=== PATIENT | female | born 1955 | race Caucasian/White ===

== ENCOUNTER → 2016-06-03 | Outpatient (CLI) | payer BC | LOC: MC.RAD 07:40 | DX: Z12.31 Encounter for screening mammogram for malignant neoplasm of breast (principal) ==

== ENCOUNTER 2016-06-04 08:00 | Outpatient (RCR) | payer BC | END 2016-06-04 15:05 | disposition home or self-care (01) | LOC: MKS.ESL.PT 08:00 | DX: H81.12 Benign paroxysmal vertigo, left ear (principal) ==

== ENCOUNTER → 2017-07-18 | Outpatient (CLI) | payer BC | LOC: COL.RAD 10:21 | DX: D25.9 Leiomyoma of uterus, unspecified (principal) ==

== ENCOUNTER → 2017-11-01 | Outpatient (CLI) | payer BC | LOC: MC.RAD 08-30 08:40 | DX: Z12.31 Encounter for screening mammogram for malignant neoplasm of breast (principal) ==

== ENCOUNTER 2017-11-14 10:30 | Outpatient (RCR) | payer BC | END 2017-11-20 | disposition home or self-care (01) | LOC: MKS.ESL.PT | DX: M25.512 Pain in left shoulder (principal) ==

== ENCOUNTER 2017-12-05 12:50 | Outpatient (RCR) | payer BC | END 2018-03-05 | disposition home or self-care (01) | LOC: MKS.ESL.PT | DX: M25.512 Pain in left shoulder (principal) ==

== ENCOUNTER → 2018-12-22 | Outpatient (CLI) | payer BC | LOC: MC.RAD 07:47 | DX: Z12.31 Encounter for screening mammogram for malignant neoplasm of breast (principal) ==

== ENCOUNTER → 2021-02-09 | Outpatient (CLI) | payer BC | LOC: MC.RAD 10:12 | DX: Z12.31 Encounter for screening mammogram for malignant neoplasm of breast (principal) ==

== ENCOUNTER → 2023-05-03 | Outpatient (CLI) | payer BC | LOC: MC.RAD 16:00 | DX: Z12.31 Encounter for screening mammogram for malignant neoplasm of breast (principal) ==